=== PATIENT | female | born 1950 | race Caucasian/White ===

== ENCOUNTER 2017-09-09 15:33 | Emergency (ER) | payer MEDICARE ==
[2017-09-09 15:45] VITALS: BP 138/86
--- NOTE | 2017-09-09 15:49 | UC ---
Hip/Pelvis Pain - HPI Summary HPI Summary: 67 yo female presents with right>left hip pain s/p fall 30min GROUP PRESIDENT. She tells me that she was walking in a parking lot with her grand-daughter and the child tripped over a rock and fell into the pt's legs. Pt then tripped over child and landed on her right hip. Had immediate pain and was not able to get up. Finally , did get up - but could not bear weight on their right LE. Hx of b/l THR with revision on the left. Denies numbness or tingling. - History Of Current Complaint Chief Complaint: UCLowerExtremity Stated Complaint: FALL R HIP Time Seen by Provider: 09/09/17 15:41 Hx Obtained From: Patient Onset/Duration: Sudden Onset Severity Initially: Moderate Severity Currently: Moderate Pain Intensity: 5 Pain Scale Used: 0-10 Numeric - Allergies/Home Medications Allergies/Adverse Reactions: Allergies Allergy/AdvReac Type Severity Reaction Status Date / Time No Known Allergies Allergy Verified 09/09/17 15:46 Home Medications: Home Medications Levothyroxine Sodium 50 mcg PO DAILY 09/09/17 [History Confirmed 09/09/17] PMH/Surg Hx/FS Hx/Imm Hx Endocrine History: Hypothyroidism, Dyslipidemia - Surgical History Surgical History: Yes Surgery Procedure, Year, and Place: BILATERAL HIPS RT [id number] LTside= - Family History Known Family History: Positive: Diabetes - Social History Occupation: Retired Lives: With Family Alcohol Use: None Substance Use Type: None Smoking Status (MU): Never Smoked Tobacco Review of Systems Constitutional: Negative Skin: Negative Respiratory: Negative Cardiovascular: Negative Neurovascular: Negative Musculoskeletal: Other: - B/L hip pain. R>L Neurological: Negative Psychological: Negative All Other Systems Reviewed And Are Negative: Yes Physical Exam - Summary Physical Exam Summary: GENERAL: NAD. WDWN. No pain distress. SKIN: No rashes, sores, lesions, or open wounds. NECK: Supple. FROM. Nontender. No lymphadenopathy. CHEST: CTAB. No r/r/w. No accessory muscle use. Breathing comfortably and in no distress. CV: RRR. Without m/r/g. Pulses intact. Brisk cap refill. MSK: Mild TTP over right posterior hip. Able to bear weight when standing, but has pain in this area. Able to flex hip. Strength 5/5. NEURO: Alert. CN II-XII grossly intact. Sensations intact B/L LEs L3-S1. PSYCH: Age appropriate behavior. Triage Information Reviewed: Yes Vital Signs: Initial Vital Signs Temp 98 F 09/09/17 15:42 Pulse 79 09/09/17 15:42 Resp 18 09/09/17 15:42 BP 138/86 09/09/17 15:42 Pulse Ox 100 09/09/17 15:42 Hip Injury Course/Dx - Course Course Of Treatment: XR: IMPRESSION: NO EVIDENCE FOR FRACTURE, IF THE PATIENT'S SYMPTOMS PERSIST RECOMMEND. FOLLOW-UP IMAGING. Advised pt to f/u with her Orthopedic doctor. She has a walker and cane at home that she will use until she is feeling better. - Differential Dx/Diagnosis Provider Diagnoses: Right hip pain s/p fall Discharge - Sign-Out/Discharge Documenting (check all that apply): Discharge/Admit/Transfer - Discharge Plan Condition: Stable Disposition: HOME Patient Education Materials: Hip Contusion (ED) Referrals: Chino Donovan MD [Primary Care Provider] - Additional Instructions: If you develop a fever, shortness of breath, chest pain, new or worsening symptoms - please call your PCP or go to the ED. 1) Rest, Ice, and weight bear as tolerated 2) Please call your Orthopedic doctor to schedule a follow up appointment as soon as possible - Billing Disposition and Condition Condition: STABLE Disposition: Home
--- NOTE | 2017-09-09 16:39 | RAD ---
INDICATION: Bilateral hip pain status post fall. COMPARISON: There are no prior studies available for comparison. TECHNIQUE: An AP view of the pelvis and frontal and lateral views of both hips were obtained. FINDINGS: The patient is status post bilateral total hip replacement surgery. The bones and prostheses are in normal alignment. No fracture is seen. IMPRESSION: NO EVIDENCE FOR FRACTURE, IF THE PATIENT'S SYMPTOMS PERSIST RECOMMEND FOLLOW-UP IMAGING.
== END 2017-09-09 17:17 | disposition home or self-care (01) ==
LOC: UCEAST 15:33
DX: M25.551 Pain in right hip (principal); Z96.698 Presence of other orthopedic joint implants; Z96.643 Presence of artificial hip joint, bilateral; W01.0XXA Fall on same level from slipping, tripping and stumbling without subsequent striking against object, initial encounter; Y93.01 Activity, walking, marching and hiking; Y92.481 Parking lot as the place of occurrence of the external cause; E03.9 Hypothyroidism, unspecified
CPT/HCPCS: 73523; 99211; G0463

== ENCOUNTER 2018-11-21 18:39 | Emergency (ER) | payer MEDICARE ==
--- NOTE | 2018-11-21 19:20 | ED ---
Upper Extremity Pain - HPI Summary HPI Summary: 68 year old F presenting to [facility] accompanied by complains of right elbow pain since catching her foot on a solar light on the ground, tripping, and hitting the right side of her body on the side of a deck pole at 18:30 today. Patient reports right hip pain and nausea. The patient rates the pain 10/ 10 in severity. Symptoms aggravated by movement. Symptoms alleviated by icing. Patient states that immediately after hitting the deck pole, she felt nauseous and light headed. Patient denies head trauma and LOC. Patient states she went inside her house, where she sat with her head in between her legs. Patient states that after 5 minutes, her nausea and light headedness resolved. Patient states she is not taking any blood thinners. Patient states she took Advil 200 mg this morning. Patient states she has had bilateral hip replacements. Denies smoking, drinking, drug use. Medications reviewed. Allergies noted. - History of Current Complaint Chief Complaint: EDFall Stated Complaint: RT ARM INJURY PER PT Time Seen by Provider: 11/21/18 19:03 Hx Obtained From: Patient Mechanism Of Injury: Other - catching her foot on a solar light on the ground, tripping, and hitting the right side of her body on the side of a deck pole Onset/Duration: Started Hours Ago - 18:30 today, Still Present Timing: Constant Severity Currently: Severe Pain Location: Elbow - right Aggravating Factor(s): Movement Alleviating Factor(s): Ice Associated Signs & Symptoms: Positive: Nausea, Other - right hip pain - Allergies/Home Medications Allergies/Adverse Reactions: Allergies Allergy/AdvReac Type Severity Reaction Status Date / Time narcotics Allergy See Comment Uncoded 11/21/18 18:45 Home Medications: Home Medications Levothyroxine TAB* [Synthroid TAB*] 50 mcg PO DAILY 11/21/18 [History Confirmed 11/21/18] Multivitamins/Minerals TAB* [Theragran/minerals TAB*] 1 tab PO DAILY 11/21/18 [ History Confirmed 11/21/18] PMH/Surg Hx/FS Hx/Imm Hx Endocrine/Hematology History: Reports: Hx Thyroid Disease Comment Only: Hx Diabetes - prediabetic Cardiovascular History: Reports: Hx Hypercholesterolemia - Cancer History Cancer Type, Location and Year: breast CA 2012 - Surgical History Surgery Procedure, Year, and Place: BILATERAL HIPS RT [id number] LTside= [id number] Infectious Disease History: No Infectious Disease History: Denies: Traveled Outside the [place] in Last 30 Days - Family History Known Family History: Positive: Diabetes - Social History Alcohol Use: None Hx Substance Use: No Substance Use Type: Reports: None Hx Tobacco Use: No Smoking Status (MU): Never Smoked Tobacco Review of Systems Positive: Nausea Positive: Other - right elbow pain, right hip pain All Other Systems Reviewed And Are Negative: Yes Physical Exam - Summary Physical Exam Summary: Constitutional: Well-developed, Well-nourished, Alert. (-) Distressed Skin: Warm, Dry HENT: Normocephalic; Atraumatic Eyes: Conjunctiva normal Neck: Musculoskeletal ROM normal neck. (-) JVD, (-) Stridor, (-) Tracheal deviation Cardio: Rhythm regular, rate normal, Heart sounds normal; Intact distal pulses; The pedal pulses are 2+ and symmetric. Radial pulses are 2+ and symmetric. (-) Murmur Pulmonary/Chest wall: Effort normal. (-) Respiratory distress, (-) Wheezes, (-) Rales Abd: Soft, (-) tenderness, (-) Distension, (-) Guarding, (-) Rebound Musculoskeletal: Right elbow tenderness, patient refusing to move at the right elbow, radial pulses 2+, patient is able to monumental stonemason but has pain when gripping Lymph: (-) Cervical adenopathy Neuro: Alert, Oriented x3 Psych: Mood and affect Normal Triage Information Reviewed: Yes Vital Signs On Initial Exam: Initial Vitals Temp Pulse Resp BP Pulse Ox 97.3 F 73 18 117/86 96 11/21/18 18:43 11/21/18 18:43 11/21/18 18:43 11/21/18 18:43 11/21/18 18:43 Vital Signs Reviewed: Yes Diagnostics - Vital Signs Vital Signs Temp Pulse Resp BP Pulse Ox 11/21/18 18:43 97.3 F 73 18 117/86 96 - Laboratory Lab Statement: Any lab studies that have been ordered have been reviewed, and results considered in the medical decision making process. - Radiology Right elbow x-ray Radiology Interpretation Completed By: ED Physician Summary of Radiographic Findings: avulsion of the upper olecranon. pending official report Re-Evaluation - Re-Evaluation First Eval Re-Evaluation Time: 20:39 Comment: placed posterior long arm splint Course/Dx - Course Course Of Treatment: Patient is here after a mechanical fall. Patient had pain in her right hip close ambulatory with no bony tenderness. Patient denies x- ray of her hip. Patient had an x-ray of her right elbow which showed an avulsion fracture of the lateral epicondyle per my read. Patient was neurovascularly intact. Patient is placed in a splint and given orthopedic surgery follow-up. - Diagnoses Provider Diagnoses: Elbow fracture, right, Fall Discharge ED - Sign-Out/Discharge Documenting (check all that apply): Patient Departure - Discharge Patient Received Moderate/Deep Sedation with Procedure: No - Discharge Plan Condition: Stable Disposition: HOME Patient Education Materials: Elbow Fracture (ED), Splint Care (ED), Fall Prevention (ED) Referrals: Chino Donovan MD [Primary Care Provider] - Andrew Parham MD [Medical Doctor] - 1 Day Additional Instructions: Take 600 mg ibuprofen and 1000 mg Tylenol every 6 hours. Please follow up with Dr. Parham. Please make all follow-ups in 1-3 days unless I advise you otherwise. PLEASE RETURN TO EMERGENCY DEPARTMENT FOR ANY NEW OR WORSENING SYMPTOMS. - Billing Disposition and Condition Condition: STABLE Disposition: Home - Attestation Statements Document Initiated by Maite: Yes Documenting Scribe: Janiya Davalos Provider For Whom Maite is Documenting (Include Credential): Javi Obrien MD Scribe Attestation: I, Janiya Davalos, scribed for Javi Obrien MD on 11/21/18 at 2350. Scribe Documentation Reviewed: Yes Provider Attestation: The documentation as recorded by the Janiya oden accurately reflects the service I personally performed and the decisions made by me, Javi Obrien MD Status of Scribe Document: Viewed
[2018-11-21] MEDS ORDERED: Acetaminophen TAB* 325 MG PO ONE (19:32)
[2018-11-21] MEDS ORDERED: Ibuprofen TAB* 600 MG PO ONE (19:32)
[2018-11-21 21:12] VITALS: BP 121/73
--- NOTE | 2018-11-22 11:24 | PN ---
Progress Note - Progress Note Date of Service: 11/21/18 Note: Final radiology read: Patient Name: JOANNA SIMMONS I Medical Record#: [id number] Ordering Physician: Javi Obrien MD Acct.#: [id number] : 1950 Age: 68 Sex: F Location: EMERGENCY DEPARTMENT Exam Date: 11/21/181929 ADM Status: DEP ER Order Information: ELBOW RIGHT 2 VWS Accession Number: [id number] CPT: 14363 INDICATION: Right elbow injury. TECHNIQUE: 2 views of the right elbow were obtained. FINDINGS: There is an anterior fat-pad sign consistent with a joint effusion. There appears to be a poorly defined displaced fracture of the lateral epicondyle and capitellum which also appears subluxed dorsal relative to the radial head. IMPRESSION: POORLY DEFINED DISPLACED FRACTURE OF THE LATERAL EPICONDYLE AND CAPITELLUM AND SUBLUXATION OF THE RADIAL HEAD. RECOMMEND ORTHOPEDIC CONSULTATION. IN ADDITION A CT OF THE ELBOW MAY BE HELPFUL IN FURTHER DEFINITION. R2 Preliminary Imaging Read R2 Pt. was placed and splint and sling. I called and spoke with pt. today at 1125. She has a scheduled apt. with Dr. Parham for tomorrow at 1300.
== END 2018-11-21 21:05 | disposition home or self-care (01) ==
LOC: ED 18:39
DX: S42.401A Unspecified fracture of lower end of right humerus, initial encounter for closed fracture (principal); M25.521 Pain in right elbow; R11.0 Nausea; W19.XXXA Unspecified fall, initial encounter; Y92.9 Unspecified place or not applicable; E03.9 Hypothyroidism, unspecified
CPT/HCPCS: 99282; A9270-GY

== ENCOUNTER 2018-11-29 13:25 | Observation (INO) | payer MEDICARE ==
--- NOTE | 2018-11-27 16:12 | CONSULT ---
Consult Consult: Anesthesiology Consult Asked by Dr Parham to see this 68yoF scheduled for ORIF of Right distal humerus who is very anxious about anesthesia. The patient was seen today in PAT clinic along with her during which time I reviewed with her her previous surgical and anesthetic history, answered questions and discussed an anesthetic plan for her upcoming surgery. Briefly, the patient has no known cardiac history, is on statin for dyslipidemia , is a non-smoker, has pre-diabetes, is hypothyroid and on replacement therapy and has occassional migraines for which she takes Fiorecet prn. She saw her PMD Dr. Donovan earlier this year and I asked that these records including ECG and ECHO be sent. Her first surgery was in 1979 at [facility] for ovarian cysts during which she had general anesthesia with enflurane and muscle relaxation with pancuronium. She describes PACU stay as recalling inability to swallow and weakness. She showed me a letter from the anesthesiologist written to her that describes what happened and likely was incomplete reversal of neuromuscular block. There was no difficulty with airway or hemodynamics. She spent the night in hospital though was receiving Demerol for pain and developed respiratory depression requiring naloxone and then transfer to ICU over night. She was determined not to have pseudocholinesterase deficiency or myasthenis gravis. Further surgical history included uterine fibroid in 1988 for which she had spinal anesthesia and says took long time to resolve. She had a cholecystectomy in 2000, a left breast lumpectomy at [facility] with MAC, bilateral THR in [place] and left hip revision in [place] in 03/2016 for which she had general anesthesia. She has extensive records including communications with anesthesiologists, which I reviewed from her first surgery and and that of her most recent hip revision. I spoke with the patient and her about general anesthesia, explaining it is not one medication but a state of sleep, amnesia, analgesia and when required muscle relaxation, all achieved with different medications and inhalational agent. I acknowledged her unpleasant experience of residual muscular blockade and how it has affected her. I also assured her that the medication she received for muscle relaxation as well as the inhalational agent at that surgery are no longer used. For her upcoming elbow ORIF, it is likely we won't need neuromuscular blockade. I did tell her that there are different types of anesthetic options but not all are appropriate for each type of surgery , like for example, spinal would not be for this surgery. I feel that given her anxiety that GA would be best. I did mention regional with sedation but she agreed that she would want to be asleep. We talked about using an LMA and her ability to breathe spontaneously, though ETT and intubation are always ready for use in the OR regardless of case or initial anesthetic plan. We also talked about her wanting to avoid narcotics. Ketorolac and IV acetaminophen would be given. She has been on oxycodone in the past without problem and this can be used post-opreratively for pain if needed. Local anesthetic as deemed by surgeon will also be helpful. I am not sure if I will be the anesthesiologist at this point but I did tell the patient that I will look for her if available. Otherwise one of my partners will do the case and be aware of her history. She said she feels reassured and more comfortable with upcoming surgery.
[~2018-11-29 13:25] MED LIST: Buffered Lidocaine 1% SYRIN* 1 ML/SYRINGE INTRADERM ONE; Lactated Ringers 1000 ML Bag* 1,000 ML IV SCH
[2018-11-29] MEDS ORDERED: ceFAZolin 2 GM PREMIX in ORs 2 GM/50 ML BAG ONE (13:36)
[2018-11-29] MEDS ORDERED: Bupivacaine 0.25% SDV PF* 10 ML VIAL INJ ONE (15:25)
[2018-11-29] MEDS ORDERED: Famotidine IV* 10 MG/ML 2 ML (20 mg) ONE (16:02)
[2018-11-29] MEDS ORDERED: fentaNYL* 50 MCG/ML 2 ML VIAL (100 MCG VIAL) ONE ×2 (16:18→20:03)
[2018-11-29] MEDS ORDERED: Remifentanil* 2 MG VIAL ONE (16:18)
[2018-11-29] MEDS ORDERED: Propofol* 10 MG/ML 20 ML BTL ONE (18:22)
[2018-11-29] MEDS ORDERED: Succinylcholine* 20 MG/ML 10 ML VIAL ONE (18:22)
[2018-11-29] MEDS ORDERED: EPHEDrine (Pressors)* 50 MG/ML VIAL ONE (18:22)
[2018-11-29] MEDS ORDERED: Dexamethasone IV* 4 MG/ML 1 ML (4 MG) ONE (18:22)
[2018-11-29] MEDS ORDERED: oxyCODONE/Acetamin 5/325 MG* TAB PO PRN ×2 (19:01→19:06)
[2018-11-29] MEDS ORDERED: Morphine INJ* 10 MG/ML 1 ML CARPUJECT IV PRN (19:06)
[2018-11-29] MEDS ORDERED: diPHENhydraMINE PO* 25 MG PO PRN (19:06)
[2018-11-29] MEDS ORDERED: Ondansetron INJ* 2 MG/ML VIAL IV PRN (19:06)
[2018-11-29] MEDS ORDERED: diPHENhydraMINE IV* 50 MG/ML 1 ml VIAL (BENADRYL) IV PRN (19:06)
[2018-11-29] MEDS ORDERED: Ondansetron TAB* 4 MG PO PRN (19:06)
[2018-11-29] MEDS ORDERED: traMADol TAB* 50 MG PO PRN (19:06)
[2018-11-29] MEDS ORDERED: Butalb/Acetamin/Caff TAB* 1 TAB PO PRN (19:10)
[2018-11-29] MEDS ORDERED: Docusate CAP* 100 MG PO PRN (19:11)
[2018-11-29] MEDS ORDERED: Polyethylene Glycol 3350* 17 GM PACKET PO PRN (19:13)
[2018-11-29] MEDS ORDERED: Vancomycin(*) 1,000 MG VIAL ONE (19:47)
[2018-11-29] MEDS ORDERED: Lactated Ringers 1000 ML Bag* 1,000 ML IV SCH (20:00)
[2018-11-29] MEDS ORDERED: Acetaminophen IV 1GM/100ML * 100 ML ONE (20:04)
[2018-11-29] MEDS ORDERED: Ketorolac INJ* 30 MG/ML 1 ML VIAL ONE (20:05)
[2018-11-29] MEDS ORDERED: fentaNYL* 50 MCG/ML 2 ML VIAL (100 MCG VIAL) IV PRN (20:11)
[2018-11-29] MEDS ORDERED: DiMENhydriNATE IV* 50 MG/ML VIAL IV PUSH PRN (20:11)
[2018-11-29] MEDS ORDERED: Naloxone* 0.4 MG/ML 1 ML VIAL IV PRN (20:11)
[2018-11-29] MEDS ORDERED: Ondansetron INJ* 2 MG/ML VIAL ONE (20:23)
[2018-11-29] MEDS ORDERED: DiMENhydriNATE IV* 50 MG/ML VIAL ONE (20:54)
[2018-11-29] MEDS: Atorvastatin* 10 MG TAB PO SCH (23:52)
[2018-11-29] MEDS: Acetaminophen TAB* 325 MG PO PRN (23:52)
[2018-11-30] MEDS: Ibuprofen TAB* 200 MG PO PRN ×4 (01:09→20:08)
[2018-11-30] MEDS: ceFAZolin 1 GM ADVAN(*) 1 GM in NS 0.9% 50 ML* 50 ML IVPB SCH ×3 (01:12→17:13)
--- NOTE | 2018-11-30 03:12 | OP ---
DATE OF OPERATION: 11/29/18 - ROOM #332 DATE OF : 46 SURGEON: Andrew Parham MD. SLEEP MANAGER: EDUARDA Gregory. An underwriting assistant was needed for the entirety of the procedure to aid in positioning of the arm and retraction. ANESTHESIOLOGIST: Dr. Beavers. ANESTHESIA: General. PRE-OP DIAGNOSIS: Right highly comminuted very distal, distal humerus fracture. POST-OP DIAGNOSIS: Right highly comminuted very distal, distal humerus fracture. OPERATIVE PROCEDURE: Open reduction internal fixation of highly comminuted intraarticular very distal right distal humerus fracture. INDICATIONS: Ms. Short is 68 years old. She had a fall in her yard. She sheared off the distal articular surface of the humerus. Fracture was so distal it was not amendable to plating. I told her we would have to fix it with multiple screws. The capitellum was sitting anterior to the distal humeral shaft. She understands the risks and benefits including the risk of ulnar nerve neuritis, risk of loss of reduction, of nonunion, malunion, pain despite doing surgery, developing post-traumatic arthritis with stiffness, as well as laxity. Additionally, she has had some problems with anesthesia in the past. We dealt with all of that. She wants to proceed. ESTIMATED BLOOD LOSS: 50 mL. COMPLICATIONS: None. FINDINGS: See above and below. DESCRIPTION OF PROCEDURE: Ms. Short was seen in the preoperative holding area. The correct site, side, and procedure were identified. We came back to the operating room, she was positioned in the lateral decubitus position with a silveira bag and an axillary roll. The arm was held up over an arm conroy. All of the nerves were well padded. The arm was then prescrubbed, prepped and draped in the usual fashion and time-out was performed. The arm was exsanguinated with the Esmarch and the tourniquet was inflated to 250 mmHg. I made a longitudinal incision curving just radially around the olecranon. Dissection was carried down, full-thickness flaps were raised off of the triceps fascia, off the periosteum over the olecranon and then off the antebrachial fascia. I went ahead and split the periosteum right over the ulnar subcutaneous border. I released just enough to put a plate down. I went ahead and released the triceps fascia medially and lateral in preparation for the olecranon osteotomy. I then marked out a Chevron osteotomy. I then performed that with a sagittal saw and completed the articular surface with the osteotome. The olecranon was rotated back proximally out of the way and sewn down with an 0 Vicryl suture that would stay docked underneath the subcutaneous tissue and out of the way for the remainder of the procedure. I then debrided out all of the fracture hematoma, all the soft tissue that was interposed. The fracture through the trochlea was noted, the capitellum was noted to be sitting anterior to the distal humerus. This was delivered out posteriorly and it had absolutely no soft tissue attachments to it, so we placed it in a most lap and set it aside on the table in anticipation of putting it back in at a later time during the surgery. It was noted that the trochlea, as seen on the preoperative CT, was sitting with a sagittal split, sitting anterior to the distal humerus. I went ahead and first reduced the most ulnar posterior fragment and held that in place with a point of reduction clamp and then placed a couple of K-wires. I then placed a 3-0 Synthes headless compression screw in standard fashion up into the ulnar column. This provided excellent fixation of that fragment. There was a second posterior trochlear fragment that was sitting just radial to that, that was reduced and pinned into place. It was then secured with headless compression screws as well, one that went subchondrally, out ulnarly through the subchondral bone and then some screws that went through the articular surface up proximally. Care was taken not to put any of the screws into the olecranon fossa. At this point, I could not see anterior to those fragments. I went ahead and released the medial collateral ligament so that I could open up the joint. Once I had done that I could see very clearly the anterior distal humerus. I went ahead and reduced the anterior trochlea with a couple of dental picks and then passed some pre-positioned K-wires, held everything in place. I augmented this with a couple of point of reduction clamps. I then placed 2 headless compression screws to secure the anterior trochlea. These were all Synthes headless compression screws. Lastly, I brought back in my capitellum. I went ahead and placed that in the reduced position and then provisionally fixed it with 3 pre-positioned 1-mm K- wires. I then placed 1 headless compression screw across the subchondral bone ulnarly. I then placed 2 additional headless compression screws retrograde. Please note that there was a large void where the capitellum had been impacted, and once I disimpacted it and brought it back out, there was a large void, so I had taken 10 mL of cancellous chips and I morselized it and packed it in there very tightly to fill that void prior to placing the headless compression screws from anterior to posterior. At this point, fixation was all very nice. I went ahead and reduced my osteotomy. I placed one K-wire obliquely. I then made a split in the triceps tendon. I put my olecranon plate in place. I secured it in the oblong hole distally. I then used a metaphyseal screw to compress by placing it from proximal to distal in the home run screw position. I did have to remove the K- wire in order to get good compression. I went ahead and filled the remainder of the holes with a combination of metaphyseal and locking screws. After I got everything in place, I did switch out some of the metaphyseal screws for locking screws. We ultimately ended up with a couple of locking screws proximally and one metaphyseal screw proximally. They were all cortical screws distally. There was excellent compression across the osteotomy. I went ahead and confirmed final fluoroscopic imaging. All the screws looked to be in good position. Clinically, I could see everything and everything was in good position. Prior to getting my fluoroscopic images, I had placed 1 GII DePuy Mitek suture anchor in the footprint of the medial collateral ligament. This was whipstitched down in the medial collateral ligament and then very nice repair was performed of the medial collateral ligament. After I had repaired the ligament, the elbow was completely stable and cannot be dislocated. It glided through a full arch of motion congruently and stably. The forearm had full pronation and supination. I went ahead and closed the periosteum over the plate distally with 0 Vicryl suture. The split in the triceps was repaired with 0 Vicryl suture. The triceps fascia was sewn together with 0 Vicryl suture. Subcutaneous tissue was reapproximated with 2-0 Vicryl suture. Skin was closed with rico. I had put vancomycin powder all along the plate and all around the soft tissues and in the subcutaneous tissue prior to closure. Wound was dressed with Xeroform, 4x4, and sterile Webril. A long-arm splint with anterior and posterior flaps was placed with the elbow in about 45 degrees of flexion. Tourniquet had been deflated after the olecranon plate was fixed and was left down for the remainder of the case. She was taken to the recovery room in stable condition. [id number]/[facility] #: [id number] MEAGAN
[2018-11-30] MEDS: Levothyroxine TAB* 50 MCG TAB PO SCH (05:39)
[2018-11-30] MEDS: Calcium Polycarbophil TAB* 625 MG PO SCH ×2 (07:40→11:25)
[2018-11-30] MEDS: Enoxaparin(*) 30 MG/0.3 ML SYR SUBCUT SCH (07:40)
[2018-11-30] MEDS ORDERED: oxyCODONE TAB* 5 MG TAB PO PRN (09:16)
[2018-11-30] MEDS ORDERED: oxyCODONE TAB* 5 MG TAB ONE (09:22)
[2018-11-30] MEDS: oxyCODONE TAB* 5 MG TAB PO PRN ×2 (09:25→21:08)
--- NOTE | 2018-11-30 11:13 | PN ---
Progress Note - Progress Note Date of Service: 11/30/18 SOAP: Subjective: []Patient seen at bedside, feeling slightly nauseated. Her pain is better managed with Oxycodone. She denies SOB, CP, fever or chills. Objective: [] Vital Signs Temp 98.4 F 11/30/18 07:33 Pulse 74 11/30/18 07:33 Resp 18 11/30/18 09:25 BP 142/41 11/30/18 07:33 Pulse Ox 93 11/30/18 07:33 Intake & Output 11/29/18 11/30/18 11/30/18 18:59 06:59 18:59 Intake Total 1230 Output Total 700 Balance 530 Weight 168 lb 12.8 oz Intake: IV Fluids 1200 LR 1200 Oral 30 Output: Urine 700 Right upper extremity spint is C/D/I hand and fingers moderately edematous mild paresthesia from baseline carpal tunnel syndrome moving all digits well Assessment: s/p ORIF right distal humerus fracture POD #1 Plan: Patient feels that she would like to try to go home later this evening if her nausea improves. 1 more dose antibiotic prior to discharge today follow up as scheduled with Dr. Parham in 7-10 days oxycodone sent to [facility]
[2018-11-30] MEDS: Multivitamins/Minerals TAB PO SCH (11:24)
[2018-11-30 13:15] LABS: Hematocrit 33 % (35-47); Hemoglobin 11.5 g/dL (12.0-16.0); Mean Platelet Volume 7.2 fL (7.4-10.4); Platelet Count 252 10^3/uL (150-450)
[2018-11-30 13:37] LABS: EGFR African American 103.5 (>60); EGFR Non-African American 85.5 (>60)
--- NOTE | 2018-11-30 16:22 | DS ---
DISCHARGE SUMMARY: DATE OF ADMISSION: 11/29/18 DATE OF DISCHARGE: 11/30/18 ATTENDING PHYSICIAN: Dr. Andrew Parham.* (DICTATED BY EDUARDA SON) ADMISSION DIAGNOSIS: Comminuted distal right humerus fracture. DISCHARGE DIAGNOSES: Right highly comminuted very distal, distal humerus fracture. SURGERY PERFORMED: Open reduction and internal fixation, comminuted intraarticular distal right humerus fracture. HOSPITAL COURSE: Ms. Short is a 68-year-old female, who fell in her backyard and injured her right upper extremity. X-rays and CAT scan revealed that she sheared off the distal articular surface of the humerus. It was explained to the patient that she would benefit from open reduction and internal fixation to try to restore the joint surface as best as possible. She elected to proceed and was taken to the operating room under the care of Dr. Andrew Parham on the date of 11/29/18. She tolerated the procedure well and left the operating room in stable condition. Postoperatively, her pain was managed well with oxycodone 5 mg 1 to 2 tablets every 4 hours as needed. She had no postoperative complications otherwise. She felt no dizziness, shortness of breath, chest pain , palpitations, fever, chills on postoperative day #1. She was moving her fingers fairly well despite moderate edema of her hand and digits. Mild paresthesia noted from baseline carpal tunnel syndrome prior to this injury. She had excellent capillary refill/circulation. PLAN: The patient was discharged to home on the evening of 12/01/18. Her posterior splint and dressings remain dry and intact on the right upper extremity. She has a sling for support. She agreed to a prescription of oxycodone 5 mg tablets 1 to 2 tablets every 4 hours as needed for pain. She does not like taking narcotic pain medications, but is currently requiring them. She is scheduled to follow up with Dr. Parham in the office in roughly 7 to 10 days. If she has any problems or concerns, the office will be contacted prior to her scheduled appointment. EDUARDA SON [id number]/[facility] #: [id number] [facility]ITALCecilio
[2018-11-30] MEDS: Atorvastatin* 10 MG TAB PO SCH (21:08)
[2018-12-01] MEDS: Ibuprofen TAB* 800 MG PO PRN ×3 (02:43→14:29)
[2018-12-01] MEDS: Levothyroxine TAB* 50 MCG TAB PO SCH (06:17)
[2018-12-01] MEDS: Acetaminophen TAB* 325 MG PO PRN ×2 (08:25→14:31)
[2018-12-01] MEDS: Enoxaparin(*) 30 MG/0.3 ML SYR SUBCUT SCH (08:26)
[2018-12-01] MEDS: Calcium Polycarbophil TAB* 625 MG PO SCH (09:02)
[2018-12-01] MEDS: Multivitamins/Minerals TAB PO SCH (10:21)
--- NOTE | 2018-12-01 16:27 | PN ---
Progress Note - Progress Note Date of Service: 12/01/18 SOAP: Subjective: POD #2 Right elbow ORIF. Doing ok. Anxious about d/c home. + nausea, no vomiting. No BM yet. Denies CP/SOB. Denies f/c Objective: Vital Signs: Temp Pulse Resp BP Pulse Ox 98.6 F 66 16 163/54 92 12/01/18 11:33 12/01/18 11:33 12/01/18 11:33 12/01/18 11:33 12/01/18 11:33 Gen: A&Ox3, NAD at rest sitting in bed RUE: Dressing C/D/I. + edema to fingers. + f/e at MCP, PIP and DIP joints. N/V intact Assessment: POD #2 Right elbow ORIF Plan: D/C home today Tylenol/Motrin for pain Zofran ODT for nausea. Encouraged pt to elevate and continue to move fingers F/U with Dr. Parham next week
[2018-12-01 17:03] VITALS: BP 165/61
--- NOTE | 2019-01-24 21:23 | DS ---
DISCHARGE SUMMARY: ADDENDUM: The original dictation was by Allyn Solomon RPA. The addendum should read as follows. This is an addendum to the previously dictated discharge summary. No condition was noted on the discharge summary. CONDITION ON DISCHARGE: The patient's condition on discharge was good. [id number]/[facility] #: [id number] MTDCecilio
== END 2018-12-01 17:10 | disposition home or self-care (01) ==
LOC: OR 13:25 → SSU 19:00 → INTOOBSV 19:00 → UNDOADMIN 19:01 → SSU 19:01
PROVIDERS: ADMIT Orthopaedic Surgery Hand Surgery; ATTEND Orthopaedic Surgery Hand Surgery
DX: S42.401A Unspecified fracture of lower end of right humerus, initial encounter for closed fracture (principal); W19.XXXA Unspecified fall, initial encounter; R11.0 Nausea; Z79.899 Other long term (current) drug therapy; Z86.718 Personal history of other venous thrombosis and embolism; E78.5 Hyperlipidemia, unspecified; E03.9 Hypothyroidism, unspecified; M19.90 Unspecified osteoarthritis, unspecified site; R73.03 Prediabetes; Z85.3 Personal history of malignant neoplasm of breast
CPT/HCPCS: 36415; 76000; 82565; 84520; 85014; 85018; 85049; 96365; 96366; 96372; 96375; A9270-GY; C1713; C1725; C1769; C1776; G0378; J0330; J0690; J1100; J1240; J1650; J1885; J2405; J2704; J3010; J3370; J3490